=== PATIENT | male | born 1990 | race Caucasian/White ===

== ENCOUNTER 2020-11-03 13:28 | Emergency (ER) | payer OTHER ==
[~2020-11-03] VITALS: Ht 175.3 cm; Wt 74.8 kg
[2020-11-03] MEDS ORDERED: PEPCID AC10 MG (14:02)
[2020-11-03] MEDS ORDERED: BUTALB-ASPIRIN1 EACH PO (16:54)
== END 2020-11-03 17:41 ==
LOC: ER 13:28
DX: R00.2 Palpitations (principal); M54.2 Cervicalgia; R00.0 Tachycardia, unspecified; B34.9 Viral infection, unspecified